=== PATIENT | female | born 1980 | race Two or more races ===

== ENCOUNTER 2016-08-16 11:25 | Emergency (ER) | payer MEDICAID ==
[~2016-08-16] VITALS: Ht 152.4 cm; Wt 77.1 kg
[~2016-08-16 11:25] MED LIST: AMOX TR-K CLV1 EAC2 ORAL; AMOXICILLIN500 MG ORAL; AUGMENTIN 875-1 EAC1 ORAL; BLEPH-105 ML OP; EXELON1.5 MG ORAL; HYDROCODON-ACE1 EA15 ORAL; IBUPROFEN600 MG ORAL; NITROFURANTOIN100 M2 ORAL; NKM; NORCO 10/3251 EA ORAL; NORCO 5-325 TA1 EACH ORAL; TRAMADOL HCL50 MG ORAL; VALIUM5 MG ORAL; ZOFRAN ODT4 MG ORAL; ZOFRAN4 MG ORAL; [UNRECOGNIZED DRUG - OTHER]
[2016-08-16] MEDS ORDERED: Morphine Sulfate 4mg/ml Inj IVP ONE (12:00)
[2016-08-16] MEDS ORDERED: Ketorolac 30mg Inj IV ONE (12:00)
[2016-08-16 12:29] LABS: BASOPHILS % (AUTO) 0.9 % (0.0-2.0); EOSINOPHILS % (AUTO) 0.4 % (0.0-3.0); LYMPHOCYTES % (AUTO) 28.4 % (20.0-45.0); MEAN CORPUSCULAR HEMOGLOBIN 28.4 PG (27.0-31.0); MEAN CORPUSCULAR HGB CONC 33.5 G/DL (32.0-36.0); MEAN CORPUSCULAR VOLUME 85 FL (80-99); MEAN PLATELET VOLUME 7.5 FL (6.5-10.1); MONOCYTES % (AUTO) 6.8 % (1.0-10.0); NEUTROPHILS % (AUTO) 63.5 % (45.0-75.0); PLATELET COUNT 349 K/UL (150-450); WHITE BLOOD COUNT 9.2 K/UL (4.8-10.8)
[2016-08-16 12:48] LABS: ALANINE AMINOTRANSFERASE 13 U/L (3-33); ALBUMIN/GLOBULIN RATIO 1.3 (1.0-2.7); ANION GAP 15 (5-15); ASPARTATE AMINO TRANSFERASE 19 U/L (5-40); CALCIUM 9.3 mg/dL (8.6-10.2); CARBON DIOXIDE 23 mEQ/L (20-30); CHLORIDE 99 mEQ/L (98-107); CREATININE 0.6 mg/dL (0.5-0.9); GLOMERULAR FILTRATION RATE > 60 mL/min (>60); HEMOLYSIS 4; POTASSIUM 4.1 mEQ/L (3.4-4.9); SODIUM 137 mEQ/L (135-145); TOTAL PROTEIN 7.8 g/dL (6.6-8.7)
[2016-08-16] MEDS ORDERED: HYDROmorphone 1mg/ml Carpuject IVP ONE (13:00)
[2016-08-16 14:30] VITALS: BP 119/68
--- NOTE | 2016-08-16 15:01 | Diagnostic Imaging Report ---
Indication: pain Findings: 3 views of the right hand were obtained. Normal bony mineralization and alignment are demonstrated. No acute fractures, erosions, or periosteal reaction are seen. Soft tissues are unremarkable. Impression: Negative examination of the right hand.
[2016-08-16] MEDS ORDERED: Oxycodone/Acetaminophen 5-325 ORAL ONE (15:30)
--- NOTE | 2016-08-16 16:30 | Emergency Room Report ---
History of Present Illness General Chief Complaint: Upper Extremity Injury Source: Patient Present Illness HPI While changing a tire, tire lowered onto hand. Under tire for seconds. Now with pain and tingling of R hand. No bleeding. No meds taken. Happened just before coming in. Pain 10/10 sharp, throbbing, aching with slight radiation to wrist. No fevers, NVD, headache, dysuria. R handed. Allergies: Coded Allergies: No Known Allergies (Unverified , 06/14/13) Patient History Past Medical History: see triage record Social History: Reports: smoking Social History Narrative unemployed Reviewed Nursing Documentation: PMH: Agreed, PSxH: Agreed Nursing Documentation-PMH Past Medical History: No Stated History Hx Cardiac Problems: No Hx Hypertension: No Hx Pacemaker: No Hx Asthma: No Hx COPD: No Hx Diabetes: No Hx Cancer: No Hx Gastrointestinal Problems: No Hx Dialysis: No Hx Neurological Problems: No Hx Cerebrovascular Accident: No Hx Seizures: No Physical Exam Vital Signs Date Time Temp Pulse Resp B/P Pulse Ox O2 Delivery O2 Flow Rate FiO2 08/16/16 11:46 98.1 102 20 164/103 100 Room Air Sp02 EP Interpretation: reviewed, normal General Appearance: well appearing, GCS 15, mild distress Head: normocephalic, atraumatic Eyes: bilateral eye PERRL, bilateral eye normal inspection ENT: moist mucus membranes Neck: supple Respiratory: lungs clear, normal breath sounds Cardiovascular #1: regular rate, rhythm Cardiovascular #2: 2+ radial (R) - cap fill normal in digits Gastrointestinal: normal inspection Musculoskeletal: back normal, gait/station normal, decreased range of motion - R hand all digits - but minimal movement of all tendons, swelling - minimal, other - elbow and wrist without tenderness, tender Neurologic: motor weakness - hand mainly due to pain, sensory deficit - though she is able to feel touch - difuse palmar surface, no anatomic nerve distribution Psychiatric: anxious - with pain Skin: warm/dry, other - tire dirt on hand, no lacerations or hematomata/ ecchymoses Medical Decision Making Diagnostic Impression: Primary Impression: Crushing injury of right hand Qualified Codes: S67.21XA - Crushing injury of right hand, initial encounter ER Course Patient with crush injury to R hand. Ddx: fx, contusion, muscle and tendon injuries. Not in a position of concern over compartment syndrome. Exam with good vasc. Will focus on analgesia and obtain xrays. Xrays - no fractures. Sling applied. Position excellent and neurovasc normal. No splint applied as no fx or sprain and anticipated swelling. Improved pain and function of hand. Patient stable for outpatient observation and treatment. Other X-Ray Diagnostic Results Other X-Ray Diagnostic Results : X-Ray Ordered: r hand EP Interpretation: Yes Findings: no fractures, no dislocation, no soft tissue swelling Number of Views: 3 Last Vital Signs Date Time Temp Pulse Resp B/P Pulse Ox O2 Delivery O2 Flow Rate FiO2 08/16/16 16:48 98.1 08/16/16 16:46 54 16 113/70 98 Room Air 56 Status: improved Disposition: HOME, SELF-CARE Condition: Improved Scripts Ibuprofen* (MOTRIN*) 600 Mg Tablet 600 MG ORAL Q6H Y for For Pain, #20 TAB Prov: Willy Brown M.D. 08/16/16 Oxycodone/Acetaminophen 5-325* (PERCOCET 5-325 MG TABLET*) 1 Each Tablet 1 TAB ORAL Q6H Y for For Pain, #12 TAB Prov: Willy Brown M.D. 08/16/16 Referrals: [facility] (PCP) Willy Brown M.D. August 16, 2016 16:30
[2016-08-16] MEDS ORDERED: PERCOCET 5-3251 EACH ORAL (16:31)
[2016-08-16] MEDS ORDERED: IBUPROFEN600 MG ORAL (16:31)
[2016-08-16 16:46] VITALS: BP 113/70
== END 2016-08-16 16:50 | disposition home or self-care (01) ==
LOC: EMR 12:00
DX: S67.21XA Crushing injury of right hand, initial encounter (principal); W20.8XXA Other cause of strike by thrown, projected or falling object, initial encounter; Y92.89 Other specified places as the place of occurrence of the external cause
CPT/HCPCS: 29240; 36415; 73130; 80053; 82550; 85025; 85610; 85730; 96374; 96375; 99284; J1170; J1885; J2270

== ENCOUNTER 2017-10-05 17:49 | Emergency (ER) | payer MEDICAID ==
[~2017-10-05] VITALS: Ht 165.1 cm; Wt 60.3 kg
[~2017-10-05 17:49] MED LIST changes: +PERCOCET 5-3251 EACH ORAL
[2017-10-05 18:13] VITALS: BP 135/86
[2017-10-05] MEDS ORDERED: HYDROcodone/Acetamin 7.5/325 tab ORAL ONE (18:30)
--- NOTE | 2017-10-05 19:15 | Emergency Room Report ---
History of Present Illness General Chief Complaint: Upper Extremity Injury Source: Patient Present Illness HPI 37 YO female presents to the ED c/o 01/24 localized pain to the right hand and the right shoulder after having heavy object falling on to her. pt. denies midline back or neck pain/tenderness. pt. denies open wounds/bleeding or visible bruises. Denies numbness tingling or loss of sensation or gross motor movements of the extremities, incontinence of bowel or bladder. Denies CP, Palpitations, LOC, AMS, dizziness, Changes in Vision, weakness or a sudden severe headache, nausea or vomiting. Allergies: Coded Allergies: No Known Allergies (Unverified , 06/14/13) Patient History Past Medical History: see triage record Past Surgical History: none Last Menstrual Period: 09/25/17 Now: No : 6 Para: 6 Reviewed Nursing Documentation: PMH: Agreed; PSxH: Agreed Nursing Documentation-PMH Past Medical History: No Stated History Hx Cardiac Problems: No Hx Hypertension: No Hx Pacemaker: No Hx Asthma: No Hx COPD: No Hx Diabetes: No Hx Cancer: No Hx Gastrointestinal Problems: No Hx Dialysis: No Hx Neurological Problems: No Hx Cerebrovascular Accident: No Hx Seizures: No Review of Systems All Other Systems: negative except mentioned in HPI Physical Exam Vital Signs Date Time Temp Pulse Resp B/P (MAP) Pulse Ox O2 Delivery O2 Flow Rate FiO2 10/05/17 17:59 98.3 92 24 135/86 94 Room Air 98.2 Sp02 EP Interpretation: reviewed, normal General Appearance: alert, GCS 15, non-toxic, mild distress Head: normocephalic, atraumatic Eyes: bilateral eye normal inspection, bilateral eye PERRL ENT: hearing grossly normal, normal voice Neck: full range of motion, no bony tend, tender lateral - right distal lateral towards the shoulder. Respiratory: chest non-tender, lungs clear, normal breath sounds, speaking full sentences Cardiovascular #1: regular rate, rhythm, normal capillary refill Musculoskeletal: back normal, gait/station normal, normal range of motion, tender - right anterior and lateral shoulder TTP, and TTP to the dorsum of the right hand . From of shoulder with some pain, no clicking, no obvious deformity. no bruises or obvious deformity to the right hand. Neurologic: alert, oriented x3, responsive, motor strength/tone normal, sensory intact, normal gait, speech normal, grossly normal Psychiatric: judgement/insight normal Skin: normal color, no rash, warm/dry, well hydrated Medical Decision Making PA Attestation Dr. lombardi is my supervising Physician whom patient management has been discussed with. Diagnostic Impression: Primary Impression: Contusion of wrist, right Qualified Codes: S60.211A - Contusion of right wrist, initial encounter Additional Impression: Contusion of shoulder, right Qualified Codes: S40.011A - Contusion of right shoulder, initial encounter ER Course 37 YO female presents to the ED c/o 01/24 localized pain to the right hand and the right shoulder after having heavy object falling on to her. pt. denies midline back or neck pain/tenderness. pt. denies open wounds/bleeding or visible bruises. Denies numbness tingling or loss of sensation or gross motor movements of the extremities, incontinence of bowel or bladder. Denies CP, Palpitations, LOC, AMS, dizziness, Changes in Vision, weakness or a sudden severe headache. Ddx considered but are not limited to Fracture, dislocation, contusion, Sprain/ Strain/Spasm. Vital signs: are WNL, pt. is afebrile H&PE are most consistent with musculoskeletal injury will perform imaging to r/ o fractures/dislocations. ORDERS: - X-ray 's RIGHT shoulder and wrist 3 views each - negative for fx, Dislocation, or significant soft tissue injury, per preliminary read in ED, and signed by KYLIE Townsend, my supervising physician has reviewed, and agrees with my interpretation. ED INTERVENTIONS: - [place] PO - Right wrist Splint applied by medical laboratory technical officer. Pt. remains neurovascularly intact. - Right arm Sling applied by medical laboratory technical officer. Pt. remains neurovascularly intact. DISCHARGE: At this time pt. is stable for d/c to home. Will provide printed patient care instructions, and any necessary prescriptions. Care plan and follow up instructions have been discussed with the patient prior to discharge. Other X-Ray Diagnostic Results Other X-Ray Diagnostic Results #1: X-Ray ordered: Right hand # of Views/Limited Vs Complete: 3 View Indication: Pain EP Interpretation: Yes KYLIE Xray: Interpretation reviewed, by supervising MD, and agrees with findings. Interpretation: no dislocation, no soft tissue swelling, no fractures Impression: No acute disease Electronically Signed by: Keren Robes PA-C Other X-Ray Diagnostic Results #2: X-Ray ordered: Right Shoulder # of Views/Limited Vs Complete: 3 View Indication: Pain EP Interpretation: Yes PA Xray: Interpretation reviewed, by supervising MD, and agrees with findings. Interpretation: no dislocation, no soft tissue swelling, no fractures Impression: No acute disease Electronically Signed by: Keren Townsend PA-C Last Vital Signs Date Time Temp Pulse Resp B/P (MAP) Pulse Ox O2 Delivery O2 Flow Rate FiO2 10/05/17 18:34 98.2 10/05/17 18:13 92 24 135/86 94 Room Air Status: improved Disposition: HOME, SELF-CARE Condition: Stable Scripts Ibuprofen* (MOTRIN*) 600 Mg Tablet 600 MG ORAL THREE TIMES A DAY, #20 TAB 0 Refills Prov: Keren Townsend 10/05/17 Referrals: NON PHYSICIAN (PCP) Patient Instructions: Contusion, [id number], Wrist Sprain Additional Instructions: Take medications as directed. Follow up with a Primary Care Provider in 3-5 days, even if your symptoms have resolved. --Please review list of primary care clinics, if you do not already have a primary care provider Return sooner to ED if new symptoms occur, or current symptoms become worse. Do not drink alcohol, drive, or operate heavy machinery while taking Robaxin as this may cause drowsiness. - Please note that this Emergency Department Report was dictated using [employer] transcription editor technology software, occasionally this can lead to erroneous entry secondary to interpretation by the dictation equipment. Keren Townsend Oct 05, 2017 19:15
[2017-10-05] MEDS ORDERED: IBUPROFEN600 MG ORAL (19:16)
[2017-10-05 19:43] VITALS: BP 118/71
--- NOTE | 2017-10-06 09:33 | Diagnostic Imaging Report ---
Indication: Shoulder pain Technique: 3 views of the ] shoulder Comparison: none Findings: No acute fractures. No dislocations. The joint spaces are preserved Impression: Negative
--- NOTE | 2017-10-06 09:36 | Diagnostic Imaging Report ---
Indication: Pain Technique: 3 views right hand Comparison: 08/16/2016 Findings: No acute fractures. No dislocations. The joint spaces are preserved. Impression: Negative
== END 2017-10-05 19:43 | disposition home or self-care (01) ==
LOC: EMR 18:36
DX: S60.211A Contusion of right wrist, initial encounter (principal); S40.011A Contusion of right shoulder, initial encounter; W20.8XXA Other cause of strike by thrown, projected or falling object, initial encounter; Y92.9 Unspecified place or not applicable
CPT/HCPCS: 99283